=== PATIENT | male | born 1945 | race Caucasian/White ===

== ENCOUNTER → 2020-07-14 | Outpatient (CLI) | payer MEDICARE ==
[~2020-07-14] MED LIST: OMNIPAQUE 350 MG/ML, 75ML BOTTLE ONE
[2020-07-14 15:04] LABS: CREATININE 1.05 mg/dL (0.7-1.3)
== END | disposition home or self-care (01) ==
LOC: RAD 14:06
PROVIDERS: ATTEND Family Medicine
DX: J90 Pleural effusion, not elsewhere classified (principal); N28.1 Cyst of kidney, acquired; R59.0 Localized enlarged lymph nodes; M51.34 Other intervertebral disc degeneration, thoracic region; Q63.1 Lobulated, fused and horseshoe kidney
CPT/HCPCS: 36415; 71275; 82565; Q9967

== ENCOUNTER 2020-09-12 12:57 | Outpatient (CLI) | payer MEDICARE ==
[2020-09-12] MEDS ORDERED: LIDOCAINE 1%, 10ML ONE (13:09)
== END 2020-09-12 23:59 | disposition home or self-care (01) ==
LOC: RAD 12:57
PROVIDERS: ATTEND Internal Medicine
DX: J90 Pleural effusion, not elsewhere classified (principal)
CPT/HCPCS: 32555